=== PATIENT | female | born 1940 | race Caucasian/White ===

== ENCOUNTER 2018-04-22 19:21 | Emergency (ER) | payer OTHER ==
[~2018-04-22] VITALS: Ht 152.4 cm; Wt 68.0 kg
[2018-04-22] MEDS ORDERED: METFORMIN HCL500 MG (19:27)
== END 2018-04-22 21:17 | disposition home or self-care (01) ==
LOC: ER 19:21
DX: S01.81XA Laceration without foreign body of other part of head, initial encounter (principal); W18.09XA Striking against other object with subsequent fall, initial encounter; Y93.89 Activity, other specified; Y92.59 Other trade areas as the place of occurrence of the external cause; Y99.8 Other external cause status

== ENCOUNTER 2018-04-24 10:43 | Emergency (ER) | payer OTHER ==
[~2018-04-24] VITALS: Ht 157.5 cm; Wt 59.0 kg
[~2018-04-24 10:43] MED LIST: METFORMIN HCL500 MG
[2018-04-24] MEDS ORDERED: COUMADIN1 MG (11:13)
== END 2018-04-24 12:42 | disposition home or self-care (01) ==
LOC: ER 10:43
DX: S00.03XA Contusion of scalp, initial encounter (principal); W18.39XA Other fall on same level, initial encounter; Y93.89 Activity, other specified; Y92.89 Other specified places as the place of occurrence of the external cause; Y99.8 Other external cause status